=== PATIENT | female | born 1965 | race Caucasian/White ===

== ENCOUNTER 2019-01-13 11:05 | Outpatient (CLI) | payer BC ==
--- NOTE | 2019-01-20 10:38 | MMO ---
Bilateral MAMMO Bilat Screen [facility]. CLINICAL HISTORY: Patient is 53 years old and is seen for screening. The patient has no family history of breast cancer. The patient has no personal history of cancer. VIEWS: The views performed were: bilateral craniocaudal and bilateral mediolateral oblique. FILMS COMPARED: The present examination has been compared to prior imaging studies performed at [facility] on 04/14/2011, 09/01/2011 and 04/08/2012. This study has been interpreted with the assistance of computer-aided detection. MAMMOGRAM FINDINGS: There are scattered fibroglandular densities. There are no suspicious masses, calcifications or areas of architectural distortion. Stable nodularity. Left breast asymmetry is no longer appreciated. There are no suspicious masses, suspicious calcifications, or new areas of architectural distortion. IMPRESSION: THERE IS NO MAMMOGRAPHIC EVIDENCE OF MALIGNANCY. A ROUTINE FOLLOW-UP MAMMOGRAM IN 1 YEAR IS RECOMMENDED. ACR BI-RADS Category 2 - Benign finding MAMMOGRAPHY NOTE: 1. A negative mammogram report should not delay a biopsy if a dominant of clinically suspicious mass is present. 2. Approximately 10% to 15% of breast cancers are not detected by mammography. 3. Adenosis and dense breasts may obscure an underlying neoplasm.
== END 2019-01-13 11:06 | disposition home or self-care (01) ==
LOC: SCSMAMMO 11:05
PROVIDERS: ATTEND Family Medicine
DX: Z12.31 Encounter for screening mammogram for malignant neoplasm of breast (principal)
CPT/HCPCS: 77067

== ENCOUNTER 2020-12-15 10:48 | Outpatient (CLI) | payer BC | END 2020-12-15 10:49 | disposition home or self-care (01) | LOC: TBSIIMAG 10:48 | PROVIDERS: ATTEND Family Medicine | DX: M54.12 Radiculopathy, cervical region (principal) | CPT/HCPCS: 72141 ==

== ENCOUNTER 2021-06-20 13:39 | Inpatient (IN) | payer OTHER ==
[2021-06-20 16:31] VITALS: BMI 24.7
[2021-06-20] MEDS ORDERED: FLU VACC QS2021-22(6MOS UP)/PF 60 MCG/0.5 ML SYRINGE IM ONE (16:45)
[2021-06-20] MEDS ORDERED: Acetaminophen 650 MG Suppository PR PRN (17:11)
[2021-06-20] MEDS ORDERED: Ondansetron ODT 4 MG TAB PO PRN (17:11)
[2021-06-20] MEDS ORDERED: Senokot S 8.6-50 MG TAB PO PRN (17:11)
[2021-06-20] MEDS ORDERED: Ondansetron PF 4 MG/2 ML Vial IVP PRN (17:11)
[2021-06-20] MEDS ORDERED: Loperamide HCl 2 MG CAP PO PRN (17:11)
[2021-06-20] MEDS ORDERED: Sodium Chloride 0.9% 1,000 ML IV SCH (17:15)
[2021-06-20] MEDS ORDERED: HumaLOG 300 UNITS/3 ML VIAL SC PRN (17:27)
[2021-06-20] MEDS ORDERED: Dextrose 5% in Water 1,000 ML IV PRN (17:27)
[2021-06-20] MEDS ORDERED: Dextrose 50% Abboject 50 ML SYRINGE SLOW IVP PRN (17:27)
[2021-06-20] MEDS ORDERED: Multivitamins, Adult 10 ML, Folic Acid 1 MG, Thiamine HCl 100 MG in Dextrose 5 %-0.45 %... IV SCH (17:30)
[2021-06-20] MEDS: Morphine 4 MG/ML VIAL SLOW IVP PRN ×2 (17:37→22:09)
[2021-06-20] MEDS: Sodium Chloride 0.9% 1,000 ML IV SCH (17:42)
[2021-06-20] MEDS ORDERED: Piperacillin/Tazobactam 3.375 GM in Sodium Chloride 0.9% 100 ML IVPB SCH (17:45)
[2021-06-20 18:21] LABS: Troponin I Less than 0.010 ng/mL (< 0.028)
[2021-06-20 18:28] LABS: Bacteria/HPF None Seen HPF (None Seen); Bilirubin Negative (Negative); Blood, Urine 2+ (Negative); Clarity Clear (Clear); Glucose, Urine (Dipstick) Normal (Negative); Ketone, Urine Negative (Negative); Leukocyte 25 Leu/uL (Negative); Nitrite Negative (Negative); Protein, Urine (Dipstick) 10 mg/dL (Neg-Trace); RBC/HPF 0-3 HPF (0-3); Specific Gravity, Urine 1.035 (1.002-1.036); Squamous Epithelial 0-3 HPF (0-3); Urobilinogen Normal mg/dL (Less than 2); WBC/HPF 0-3 HPF (0-3)
[2021-06-20 18:30] LABS: Urine Culture Reflex Yes Yes
[2021-06-20] MEDS ORDERED: Pantoprazole 40 MG VIAL IVP SCH (21:00)
[2021-06-20 21:52] LABS: Troponin I 0.021 ng/mL (< 0.028)
[2021-06-20] MEDS: Piperacillin/Tazobactam 3.375 GM in Sodium Chloride 0.9% 100 ML IVPB SCH (22:08)
[2021-06-20] MEDS: Enoxaparin Sodium 40 MG/0.4 ML SYRINGE SC SCH (22:08)
[2021-06-20] MEDS: Multivitamins, Adult 10 ML, Folic Acid 1 MG, Thiamine HCl 100 MG in Dextrose 5 %-0.45 %... IV SCH (22:08)
[2021-06-21] MEDS: Nicotine 14 MG PATCH TD SCH ×2 (04:22→17:40)
[2021-06-21] MEDS: Sodium Chloride 0.9% 1,000 ML IV SCH ×4 (04:22→22:08)
[2021-06-21 05:14] LABS: Hemoglobin 12.8 g/dL (12.0-16.0); Mean Corpuscular HGB CONC 34.8 g/dL (32.0-36.0); Mean Corpuscular Hemoglobin 35.1 pg (27.0-31.0); Mean Platelet Volume 8.1 fL (7.4-10.4); Platelet Count 183 thou/uL (130-400); Red Blood Cell (RBC) Count 3.63 mill/uL (4.20-5.40); White Blood Cell (WBC) Count 17.7 thou/uL (4.8-10.8)
[2021-06-21 05:20] LABS: ALT (SGPT) 9 U/L (8-55); AST (SGOT) 19 U/L (5-34); Albumin 3.1 g/dL (3.5-5.0); Alkaline Phosphatase 93 U/L (40-110); Anion Gap 12 mmol/L (10-20); BUN (Urea Nitrogen) 6 mg/dL (9.8-20.1); Calc. Creatinine Clearance 101 mL/min (70-130); Calcium 8.4 mg/dL (7.8-10.44); Carbon Dioxide 24 mmol/L (22-29); Chloride 104 mmol/L (98-107); Globulin 2.2 g/dL (2.4-3.5); Glucose 140 mg/dL (70-105); Lipase 56 U/L (8-78); Potassium 3.1 mmol/L (3.5-5.1); Protein, Total 5.3 g/dL (6.0-8.3); Sodium 137 mmol/L (136-145)
[2021-06-21] MEDS: Morphine 4 MG/ML VIAL SLOW IVP PRN ×3 (05:25→22:09)
[2021-06-21] MEDS: Piperacillin/Tazobactam 3.375 GM in Sodium Chloride 0.9% 100 ML IVPB SCH ×3 (05:25→21:35)
[2021-06-21 05:57] LABS: Band 2 % (5-11); Eosinophils 1 % (0-10); Lymphocytes 16 % (21-51); MDiff Complete? YES; Monocytes 5 % (0-10); Neutrophil 74 % (42-75); Reactive Lymphocytes 2 % (0-10)
[2021-06-21] MEDS ORDERED: Enoxaparin Sodium 40 MG/0.4 ML SYRINGE SC SCH (09:00)
[2021-06-21 11:14] LABS: SARS-CoV-2 PCR by NAA Not Detected (NotDetected)
[2021-06-21] MEDS: LACTINEX 1 TAB PO SCH ×2 (14:05→22:08)
[2021-06-21] MEDS: Multivitamins, Adult 10 ML, Folic Acid 1 MG, Thiamine HCl 100 MG in Dextrose 5 %-0.45 %... IV SCH (20:51)
[2021-06-21] MEDS: Enoxaparin Sodium 40 MG/0.4 ML SYRINGE SC SCH (22:08)
[2021-06-21] MEDS: Temazepam 15 MG CAP PO SCH (22:09)
[2021-06-22] MEDS: Sodium Chloride 0.9% 1,000 ML IV SCH ×4 (02:40→21:25)
[2021-06-22] MEDS: Piperacillin/Tazobactam 3.375 GM in Sodium Chloride 0.9% 100 ML IVPB SCH ×3 (06:19→21:31)
[2021-06-22 08:24] LABS: ALT (SGPT) 8 U/L (8-55); AST (SGOT) 15 U/L (5-34); Albumin 2.9 g/dL (3.5-5.0); Alkaline Phosphatase 80 U/L (40-110); Anion Gap 12 mmol/L (10-20); BUN (Urea Nitrogen) 4 mg/dL (9.8-20.1); Bilirubin, Total 1.7 mg/dL (0.2-1.2); Calc. Creatinine Clearance 108 mL/min (70-130); Calcium 8.2 mg/dL (7.8-10.44); Carbon Dioxide 23 mmol/L (22-29); Chloride 105 mmol/L (98-107); Glucose 110 mg/dL (70-105); Protein, Total 4.9 g/dL (6.0-8.3); Sodium 137 mmol/L (136-145)
[2021-06-22 08:27] LABS: Hemoglobin 10.8 g/dL (12.0-16.0); Mean Corpuscular HGB CONC 35.2 g/dL (32.0-36.0); Mean Corpuscular Hemoglobin 36.1 pg (27.0-31.0); Platelet Count 153 thou/uL (130-400); RBC Distribution Width 11.9 % (11.5-14.5); Red Blood Cell (RBC) Count 2.98 mill/uL (4.20-5.40); White Blood Cell (WBC) Count 15.7 thou/uL (4.8-10.8)
[2021-06-22 08:30] LABS: Potassium 2.8 mmol/L (3.5-5.1)
[2021-06-22] MEDS ORDERED: Potassium Chloride 40 MEQ in Premix Bag 1 BAG IVPB SCH (08:45)
[2021-06-22] MEDS ORDERED: Potassium Chloride 20 MEQ TAB PO SCH ×2 (08:45→18:30)
[2021-06-22] MEDS ORDERED: Olmesartan 5 MG TAB PO SCH (09:00)
[2021-06-22] MEDS ORDERED: Non-Formulary Item 1 EACH (Omeprazole [Omeprazole] 40 MG Capsule.Dr) PO SCH (09:00)
[2021-06-22] MEDS ORDERED: Magnesium 2 GM/50 ML 2 GM in Premix Bag 1 BAG IVPB SCH (09:00)
[2021-06-22 09:13] LABS: Band 5 % (5-11); Lymphocytes 9 % (21-51); MDiff Complete? YES; Monocytes 4 % (0-10); Neutrophil 82 % (42-75); Platelet Morphology Comment Appears Adequate; Polychromasia SLIGHT = 2-3 cells (100X) (0-2/hpf)
[2021-06-22] MEDS: LACTINEX 1 TAB PO SCH ×3 (09:59→21:27)
[2021-06-22] MEDS: Potassium Chloride 20 MEQ in Premix Bag 1 BAG IVPB SCH ×2 (10:00→20:05)
[2021-06-22] MEDS: Amlodipine 5 MG TAB PO SCH (10:40)
[2021-06-22] MEDS: Losartan 25 MG TAB PO SCH (10:40)
[2021-06-22 15:31] LABS: Anion Gap 12 mmol/L (10-20); BUN (Urea Nitrogen) 4 mg/dL (9.8-20.1); Calc. Creatinine Clearance 104 mL/min (70-130); Calcium 8.7 mg/dL (7.8-10.44); Carbon Dioxide 25 mmol/L (22-29); Chloride 104 mmol/L (98-107); Glucose 108 mg/dL (70-105); Potassium 3.2 mmol/L (3.5-5.1); Sodium 138 mmol/L (136-145)
[2021-06-22] MEDS: Nicotine 14 MG PATCH TD SCH (18:04)
[2021-06-22] MEDS: Multivitamins, Adult 10 ML, Folic Acid 1 MG, Thiamine HCl 100 MG in Dextrose 5 %-0.45 %... IV SCH (20:29)
[2021-06-22] MEDS: Enoxaparin Sodium 40 MG/0.4 ML SYRINGE SC SCH (21:26)
[2021-06-22] MEDS: Temazepam 15 MG CAP PO SCH (21:30)
[2021-06-23 04:58] LABS: #Basophils 0.1 thou/uL (0.0-0.2); #Eosinphils 0.3 thou/uL (0.0-0.7); #Lymphocytes 1.9 thou/uL (1.20-3.40); #Monocytes 0.4 thou/uL (0.11-0.59); #Neutrophils 10.1 thou/uL (1.40-6.50); %Basophils 0.7 % (0.0-1.0); %Eosinophils 2.2 % (0.0-10.0); %Lymphocytes 15.2 % (21.0-51.0); %Monocytes 2.7 % (0.0-10.0); %Neutrophils 79.1 % (42.0-75.0); Hemoglobin 10.2 g/dL (12.0-16.0); Mean Corpuscular HGB CONC 34.9 g/dL (32.0-36.0); Mean Corpuscular Hemoglobin 35.7 pg (27.0-31.0); Mean Platelet Volume 8.7 fL (7.4-10.4); Platelet Count 153 thou/uL (130-400); RBC Distribution Width 11.9 % (11.5-14.5); Red Blood Cell (RBC) Count 2.87 mill/uL (4.20-5.40); White Blood Cell (WBC) Count 12.7 thou/uL (4.8-10.8)
[2021-06-23] MEDS: Sodium Chloride 0.9% 1,000 ML IV SCH ×2 (04:58→13:49)
[2021-06-23] MEDS: Piperacillin/Tazobactam 3.375 GM in Sodium Chloride 0.9% 100 ML IVPB SCH (04:58)
[2021-06-23 05:21] LABS: ALT (SGPT) 10 U/L (8-55); AST (SGOT) 17 U/L (5-34); Albumin 2.8 g/dL (3.5-5.0); Alkaline Phosphatase 78 U/L (40-110); Anion Gap 11 mmol/L (10-20); BUN (Urea Nitrogen) 4 mg/dL (9.8-20.1); Bilirubin, Total 1.3 mg/dL (0.2-1.2); Calc. Creatinine Clearance 117 mL/min (70-130); Calcium 8.2 mg/dL (7.8-10.44); Carbon Dioxide 23 mmol/L (22-29); Chloride 107 mmol/L (98-107); Glucose 93 mg/dL (70-105); Potassium 3.4 mmol/L (3.5-5.1); Protein, Total 4.8 g/dL (6.0-8.3); Sodium 138 mmol/L (136-145)
[2021-06-23] MEDS ORDERED: Potassium Chloride 20 MEQ TAB PO SCH (07:45)
[2021-06-23] MEDS: LACTINEX 1 TAB PO SCH ×2 (08:34→16:27)
[2021-06-23] MEDS: Amlodipine 5 MG TAB PO SCH (08:34)
[2021-06-23] MEDS: Losartan 25 MG TAB PO SCH (08:34)
[2021-06-23 16:37] VITALS: TEMP 98.4
[2021-06-23 16:38] VITALS: BP 127/60
[2021-06-23] MEDS: Nicotine 14 MG PATCH TD SCH (17:27)
== END 2021-06-23 19:00 | disposition home or self-care (01) | DRG 439 ==
LOC: 2NO 13:39
PROVIDERS: ADMIT Internal Medicine; ATTEND Family Medicine
PROC: HZ2ZZZZ Detoxification Services for Substance Abuse Treatment (ICD-10-PCS; principal; 2021-06-20)
DX: K85.21 Alcohol induced acute pancreatitis with uninfected necrosis (principal); A04.72 Enterocolitis due to Clostridium difficile, not specified as recurrent; N39.0 Urinary tract infection, site not specified; E44.0 Moderate protein-calorie malnutrition; B96.20 Unspecified Escherichia coli [E. coli] as the cause of diseases classified elsewhere; I10 Essential (primary) hypertension; F17.210 Nicotine dependence, cigarettes, uncomplicated; F10.10 Alcohol abuse, uncomplicated; K21.9 Gastro-esophageal reflux disease without esophagitis; Z20.822 Contact with and (suspected) exposure to COVID-19; E87.6 Hypokalemia; Z71.6 Tobacco abuse counseling; Z71.41 Alcohol abuse counseling and surveillance of alcoholic; Z98.51 Tubal ligation status; Z98.890 Other specified postprocedural states; Z68.24 Body mass index [BMI] 24.0-24.9, adult
CPT/HCPCS: 36415; 36416; 80053; 83690; 85025; 87077; 87086; 87186; 87324; 87449; 87493; C9113; J1650; J2270; J2543; J3411; J3475; J3480; J3490; J7042; J7050; U0003; U0005

== ENCOUNTER 2023-03-14 09:05 | Outpatient (CLI) | payer OTHER | END 2023-03-14 09:06 | disposition home or self-care (01) | LOC: CT 09:05 | PROVIDERS: ATTEND Physician Assistant | DX: J34.2 Deviated nasal septum (principal) ==

== ENCOUNTER 2023-04-19 14:31 | Outpatient (CLI) | payer OTHER | END 2023-04-19 14:32 | disposition home or self-care (01) | LOC: RAD 14:31 | PROVIDERS: ATTEND Family Medicine | DX: M79.671 Pain in right foot (principal); M54.50 Low back pain, unspecified ==

== ENCOUNTER 2023-09-28 09:39 | Outpatient (CLI) | payer OTHER | END 2023-09-28 09:40 | disposition home or self-care (01) | LOC: BICULT 09:39 | PROVIDERS: ATTEND Family Medicine | DX: R10.9 Unspecified abdominal pain (principal) | CPT/HCPCS: 76705 ==

== ENCOUNTER 2024-06-26 09:43 | Outpatient (CLI) | payer OTHER | END 2024-06-26 09:44 | disposition home or self-care (01) | LOC: BICCT 09:43 | PROVIDERS: ATTEND Family Medicine | DX: K85.90 Acute pancreatitis without necrosis or infection, unspecified (principal) | CPT/HCPCS: 74160 ==